=== PATIENT | female | born 1975 | race Caucasian/White ===

== ENCOUNTER 2019-10-05 22:32 | Emergency (ER) | payer MEDICAID ==
[~2019-10-05] VITALS: Ht 157.5 cm; Wt 77.1 kg
[2019-10-05 22:32] VITALS: BP_SYST 143
--- NOTE | 2019-10-05 22:32 | NUR ---
Patient to ER bed 08 to gown for evaluation. Side rails up. Report given to SUSANNA Tobin
--- NOTE | 2019-10-05 22:40 | NUR ---
Pt. presented to the ED ambulatory, A&O x4, with c/o throat tightness and dryness and difficulty breathing past 2 days. Pt. reports yellow sputum, vomiting X1 today and said she threw up what she ate. She denies fever, cough, diarrhea, and constipation.
--- NOTE | 2019-10-05 23:00 | NUR ---
Dr. Bond at bedside examining pt.
[2019-10-05 23:20] LABS: BASOPHILS # (AUTO) 0.1 K/uL (0.0-0.2); BASOPHILS % (AUTO) 0.6 % (0.0-2.0); EOSINOPHILS # (AUTO) 0.3 K/uL (0.0-0.4); EOSINOPHILS % (AUTO) 3.2 % (0.0-4.0); HEMATOCRIT 38.8 % (36-48); HEMOGLOBIN 12.7 g/dL (12.0-16.0); LYMPHOCYTES # (AUTO) 1.6 K/uL (1.0-5.5); LYMPHOCYTES % (AUTO) 18.6 % (20.5-51.5); MEAN CORPUSCULAR HEMOGLOBIN 24 pg (27-31); MEAN CORPUSCULAR HGB CONC 33 % (32-36); MONOCYTES # (AUTO) 0.8 K/uL (0.0-1.0); MONOCYTES % (AUTO) 8.9 % (1.7-9.3); NEUTROPHILS # (AUTO) 5.8 K/uL (1.8-7.7); NEUTROPHILS % (AUTO) 68.7 % (40.0-70.0); PLATELET COUNT (AUTO) 188 K/uL (130-430); RED BLOOD CELL COUNT(AUTO) 5.28 MIL/uL (4.2-6.2); RED CELL DISTRIBUTION WIDTH 17.6 % (9.0-15.0); WHITE BLOOD COUNT (AUTO) 8.5 K/uL (4.8-10.8)
[2019-10-05 23:21] LABS: MEAN CORPUSCULAR VOLUME 74 fL (79.0-98.0)
[2019-10-05 23:28] LABS: ANION GAP 10 (5-15); CALCIUM 8.5 mg/dL (8.4-11.0); CHLORIDE 105 mmol/L (98-107); CREATININE 0.67 mg/dL (0.55-1.30); GLUCOSE 80 mg/dL (70-99); POTASSIUM 3.3 mmol/L (3.5-5.1); SODIUM SERUM 140 mmol/L (136-145); UREA NITROGEN, BLOOD 6 mg/dL (8-21)
[2019-10-05 23:37] LABS: ALANINE AMINOTRANSFERASE 147 U/L (12-78); ALBUMIN 3.3 g/dL (3.4-4.8); ASPARTATE AMINOTRANSFERASE 88 U/L (10-37); TOTAL BILIRUBIN 0.5 mg/dL (0.0-1.0)
[2019-10-05 23:43] LABS: GFR AFRICAN AMERICAN 124 mL/min (>90)
[2019-10-06] MEDS ORDERED: DIAZEPAM 5 MG TABLET (VALIUM) PO ONE (00:15)
[2019-10-06 00:42] VITALS: BP_SYST 143
--- NOTE | 2019-10-06 00:42 | NUR ---
Patient given written and verbal discharge instructions and verbalizes understanding. ER MD discussed with patient the results and treatment provided. Patient in stable condition. ID arm band removed. Patient educated on pain management and to follow up with PMD. Pain Scale 0/10. Opportunity for questions provided and answered. Medication side effect fact sheet provided.
== END 2019-10-06 00:42 | disposition home or self-care (01) ==
LOC: SED 22:32
DX: R06.02 Shortness of breath (principal); R00.2 Palpitations; F41.9 Anxiety disorder, unspecified; R11.10 Vomiting, unspecified; E87.6 Hypokalemia; R74.0 Nonspecific elevation of levels of transaminase and lactic acid dehydrogenase [LDH]; E88.09 Other disorders of plasma-protein metabolism, not elsewhere classified; I10 Essential (primary) hypertension
CPT/HCPCS: 32556; 36415; 71045; 80053; 84484; 85025; 93005; 99285